=== PATIENT | female | born 1970 | race Caucasian/White ===

== ENCOUNTER 2020-07-29 18:33 | Emergency (ER) | payer OTHER, SELFPAY ==
[2020-07-29 18:33] VITALS: BP 135/69; PULSE 96; RESP 16; TEMP 36.2; O2SAT 99
[2020-07-29 18:34] VITALS: BP 135/69; PULSE 95; RESP 16; TEMP 36.2; O2SAT 100; BMI 31.3
--- NOTE | 2020-07-29 18:48 | EKG12_ITS ---
Test Reason : CP Blood Pressure : / mmHG Vent. Rate : 093 BPM Atrial Rate : 093 BPM P-R Int : 142 ms QRS Dur : 090 ms QT Int : 368 ms P-R-T Axes : 073 063 047 degrees QTc Int : 457 ms Normal sinus rhythm Biatrial enlargement Nonspecific ST abnormality Abnormal ECG Confirmed by MONA DICKSON, GUERO ([id number]), book or script editor DEMETRA ADAM ([id number]) on 08/01/2020 1:19:57 PM Referred By: JEANETTE Confirmed By:GUERO DUNN MD
[2020-07-29] MEDS: Aspirin 81 MG TAB.CHEW 324 MG PO (18:57)
--- NOTE | 2020-07-29 19:00 | RAD_ITS ---
STUDY: X-RAY CHEST REASON FOR EXAM: Female, 50 years old. chest pain x 3 days, radiates into right shoulder blade TECHNIQUE: Single AP portable view of the chest. COMPARISON: None. FINDINGS: city sanitarian leads are present. There is right basilar infiltrate and/or atelectasis. There is no demonstrated pleural abnormality. Normal size heart. Normal mediastinum and samanta. Normal visualized pulmonary arteries. Normal visualized aortic arch and descending thoracic aorta. Normal visualized thoracic spine. Normal visualized ribs, clavicles, and shoulders. There is no demonstrated abnormality of the visualized soft tissue structures of the upper abdomen. RAD/Chest 1 View (Portable) IMPRESSION: Right basilar infiltrate and/or atelectasis. Electronically Signed: Raphael Snow MD at 19:11 EDT , Service support ,
[2020-07-29 19:27] LABS: Anion Gap 7 (5-15); BUN 17 mg/dL (7-18); BUN/Creat Ratio 19.2 RATIO (10-20); Calcium,Total 9.3 mg/dL (8.5-10.1); Chloride 112 mmol/L (98-107); Creatinine, Serum 0.88 mg/dL (0.55-1.02); EST Glomerular Filtration Rate 72 mL/min (>60); Est Glom Filt Rate - Afr Amer 87 mL/min (>60); Estimated Creatinine Clearance 77.15 ml/min; Glucose 87 mg/dL (74-106); Potassium 4.7 mmol/L (3.5-5.1); Sodium Level 141 mmol/L (136-145)
[2020-07-29 19:37] LABS: Absolute Lymphocyte Count 3.95 X10^3/uL (0.83-4.51); Absolute Neutrophil Count 3.9 X10^3/uL (2.0-7.7); Basophil# 0.05 X10^3/uL; Basophil% 0.6 % (0-1); Eosinophil# 0.23 X10^3/uL; Eosinophils% 2.6 % (0-5); Hematocrit 43.8 % (37-47); Hemoglobin 14.3 g/dL (12.0-15.0); Lymphocyte # 3.95 X10^3/ul (4.0); Lymphocyte % 44.4 % (19-41); Mean Corp Hgb Conc 32.6 g/dL (32-36); Mean Corpuscular Hgb 30.8 pg (27.0-32.0); Mean Corpuscular Volume 94.2 fL (81-99); Mean Platelet Vol. 10.9 fl (6.2-12.0); Monocyte# 0.74 X10^3/uL; Monocyte% 8.3 % (0-10); NRBC Flagged by Analyzer 0 % (0-5); Neutrophil # 3.91 X10^3/uL (2.7-7.7); Neutrophil % 43.9 % (47-70); Platelet Count 252 K/mm3 (150-450); RBC Distribution Width CV 14.3 % (11.6-14.6); RBC Distribution Width SD 49.4 fl (35.1-43.9); Red Blood Count 4.65 M/mm3 (4.2-5.4); White Blood Count 8.9 K/mm3 (4.4-11.0)
--- NOTE | 2020-07-29 20:08 | ED.DCSUM_ITS ---
History of Present Illness Chief Complaint: Chest Pain Informant: Patient Onset: Days - Onset 3 days ago Context: Sudden Onset Timing: Intermittent Quality: Tightness Location: Midsternal Current Severity: Mild Maximum Severity: Moderate Worsened by: Nothing Relieved by: Nothing Associated Symptoms: Mild shortness of breath Narrative: Patient is a 50-year-old woman who presents with midsternal chest discomfort. Onset of symptoms 3 days ago. The pain lasted for hours. Nothing precipitates it. Nothing exacerbates it. Today she became concerned because it radiated to her right scapula. There is a strong family history of cardiovascular disease i.e. CA at young age and stroke at young age. Patient states she has the pain when she goes to sleep. Upon awakening the pain goes away. Pain started shortly after awakening. She denies fever, chills night sweats. She denies history of VTE. She denies leg pain, swelling discoloration. She has no symptoms of claudication. She denies hiatal hernia, peptic ulcer disease, black or maroon stool. There is no history of trauma. There is history of food intolerance. She is status post cholecystectomy. Prior to exiting the room she asked if this could be caused by stress. Stated it is possible. However in light of her risk factors will need to undertake cardiac work-up. Prior similar symptoms: No Recent Illness/Hospitalization: No - Past Medical History (1) History of hypercholesterolemia Status: Acute Past Medical History - Allergies and Home Meds Allergies/Adverse Reactions: Allergies codeine Adverse Reaction (Verified 07/29/20 18:38) Vomiting Primary Care Physician: Florencio Maloney MD [Primary Care Provider] - Prior records reviewed: No Surgical History: noncontributory Lives: Spouse/ Significant Other Smoking Status: Current every day smoker Alcohol: Rare Drugs: None Review of Systems General: Denies: Chills, Fever, Malaise - Will give another albuterol this way the lobe is now rechecked and is still feels tight and he is just having Eyes: Denies: Visual changes - bilaterally, Blurred Vision - bilaterally ENT: Denies: Rhinorrhea, Sore throat Cardiovascular: Reports: Chest pain. Denies: Palpitations, Heart racing, -, - Respiratory: Reports: Dyspnea. Denies: Cough, Sputum, Dyspnea on exertion, Orthopnea, Paroxysmal nocturnal dyspnea, -, - Gastrointestinal: Denies: Abdominal pain, Nausea, Vomiting, Diarrhea, Melena, Hematochezia Genitourinary: Denies: Dysuria, Hematuria, Frequency Musculoskeletal: Denies: Myalgias, Arthralgias, Neck pain, Back pain, Swelling, Extremity Pain, -, - Skin: Denies: Rash, Wounds Psych: Reports: Anxiety Hematologic: Denies: Easy bruising, Easy bleeding Physical Exam Vital Signs/Narrative: Vital Signs Temp Pulse Resp BP Pulse Ox 07/29/20 18:34 97.1 F L 95 16 135/69 H 100 07/29/20 18:33 97.1 F L 96 16 135/69 H 99 Inital Vital Signs reviewed: Yes - Weight General: Well nourished, Well developed, No Acute Distress Head: Normocephalic, Atraumatic Eyes: Perrl, EOMI ENT: Moist mucous membranes, No rhinorrhea Neck: Supple, Nontender Cardiovascular: Regular rate, Regular rhythm, No murmurs, Normal S1, Normal S2 Respiratory: No distress, CTA bilaterally, Chest nontender Abdomen: Soft, Nontender, Nondistended, Normal bowel sounds, No masses Back: Nontender, Normal Inspection. Negative for: CVA tenderness Extremities: Nontender, No edema, - - There is no asymmetry, swelling, discoloration, leg vein distention, palpable cords or tenderness along the distribution of the deep venous system. Skin: Normal color, No rash Neurological: Alert, Oriented x3, Cranial nerves II-XII grossly intact, Normal Strength, Normal Sensation Psychological: - - Anxious blunted affect Diagnostic/Tx/Re-eval Impressions Chest X-Ray 07/29/20 19:00 IMPRESSION: Right basilar infiltrate and/or atelectasis. Electronically Signed: Raphael Snow MD at 19:11 EDT , Service support , 07/29/20 19:00 Chest 1 View (Portable) [RAD] Stat Laboratory Results 07/29/20 07/29/20 18:40 18:40 WBC 8.9 RBC 4.65 Hgb 14.3 Hct 43.8 MCV 94.2 MCH 30.8 MCHC 32.6 RDW Std Deviation 49.4 H RDW Coeff of [place] 14.3 Plt Count 252 MPV 10.9 Immature Gran % (Auto) 0.200 Neut % (Auto) 43.9 L Lymph % (Auto) 44.4 H [place] % (Auto) 8.3 Eos % (Auto) 2.6 Baso % (Auto) 0.6 Absolute Neuts (auto) 3.9 Absolute Lymphs (auto) 3.95 Nucleated RBC % 0 Sodium 141 Potassium 4.7 Chloride 112 H Carbon Dioxide 22.0 Anion Gap 7 BUN 17 Creatinine 0.88 Estim Creat Clear Calc 77.15 Est GFR (MDRD) Af Amer 87 Est GFR (MDRD) Non-Af 72 BUN/Creatinine Ratio 19.2 Glucose 87 Calcium 9.3 Troponin I < 0.015 - Medical Decision Making Patient with midsternal chest pain which may represent cardiac etiology versus noncardiac etiology. Since patient brought up anxiety and stress this is a possibility. Will rule out cardiac etiology and other causes prior to consideration of anxiety. Patient was made aware of her lab results. She seemed relieved. She informed that she is under significant stress. The fact that this is absent upon awakening and as the day goes on gets worse suspect this is due to the stressors that she is experiencing. ED Disposition - Plan for ED Patient: Disposition: Home or Assisted Living Diagnosis: Midsternal chest pain, Stress reaction Instructions: ED Chest Pain NonCardiac, ED Stress React Referrals: Florencio Maloney MD [Primary Care Provider] - 3-5 Days Additional Instructions: It is in your best interest to stop smoking.
== END 2020-07-29 20:29 | disposition home or self-care (01) ==
PROVIDERS: Emergency Provider Emergency Medicine; PCP Family Medicine
DX: F43.9 Reaction to severe stress, unspecified (principal); E78.00 Pure hypercholesterolemia, unspecified; F17.200 Nicotine dependence, unspecified, uncomplicated; Z82.49 Family history of ischemic heart disease and other diseases of the circulatory system; Z88.5 Allergy status to narcotic agent; Z90.49 Acquired absence of other specified parts of digestive tract
CPT/HCPCS: 71045; 80048; 84484; 85025; 93005; 99285; A4216

== ENCOUNTER 2023-08-04 12:33 | Emergency (ER) | payer OTHER, SELFPAY ==
[2023-08-04 12:34] VITALS: BP 135/64; PULSE 92; RESP 18; TEMP 36.6; O2SAT 97; BMI 33.7
[2023-08-04 13:03] LABS: Absolute Neutrophil Count 5.3 X10^3/uL (2.0-7.7); Basophil# 0.04 X10^3/uL; Basophil% 0.5 % (0-1); Eosinophil# 0.14 X10^3/uL; Eosinophils% 1.6 % (0-5); Hematocrit 43.5 % (37-47); Lymphocyte % 28.1 % (19-41); Mean Corp Hgb Conc 34.5 g/dL (32-36); Mean Corpuscular Hgb 31.5 pg (27.0-32.0); Mean Corpuscular Volume 91.4 fL (81-99); Mean Platelet Vol. 10.1 fl (6.2-12.0); Monocyte# 0.69 X10^3/uL; Monocyte% 8.1 % (0-10); NRBC Flagged by Analyzer 0 % (0-5); Neutrophil # 5.25 X10^3/uL (2.7-7.7); Neutrophil % 61.5 % (47-70); Platelet Count 277 K/mm3 (150-450); RBC Distribution Width CV 14.1 % (11.6-14.6); RBC Distribution Width SD 47.4 fl (35.1-43.9); Red Blood Count 4.76 M/mm3 (4.2-5.4); White Blood Count 8.5 K/mm3 (4.4-11.0)
[2023-08-04 13:08] LABS: Internal QC Validated? YES +Cl - CLEAR BKGD; Pregnancy, Serum, hCG Quali. NEGATIVE Negative
[2023-08-04 13:17] LABS: ALB/GLOB Ratio 1.1 RATIO (0.9-2.4); AST(SGOT) 22 U/L (15-37); Alanine Aminotransfer ALT/SGPT 45 U/L (13-56); Albumin, Serum 3.8 g/dL (3.2-5.0); Alkaline Phosphatase 104 U/L (45-117); Anion Gap 4 (5-15); BUN 11 mg/dL (7-18); BUN/Creat Ratio 15.5 RATIO (10-20); Chloride 110 mmol/L (98-107); Creatinine, Serum 0.71 mg/dL (0.55-1.02); EST Glomerular Filtration Rate 91 mL/min (>60); Est Glom Filt Rate - Afr Amer 111 mL/min (>60); Estimated Creatinine Clearance 92.44 ml/min; Globulin 3.5 g/dL (2.2-4.2); Glucose 109 mg/dL (74-106); Potassium 3.7 mmol/L (3.5-5.1); Protein, Total 7.3 g/dL (6.4-8.2); Sodium Level 140 mmol/L (136-145)
[2023-08-04 13:41] LABS: Bacteria 0 SEEN /hpf (None Seen); Mucous, Urine 0 SEEN /hpf (<or=2+); Red Blood Cells-Urine 0 SEEN /hpf (0-5); Squamous Epithelial Cells - UA 0 SEEN /hpf (5-10); White Blood Cells 0 SEEN /hpf (0-5)
--- NOTE | 2023-08-04 13:41 | CT_ITS ---
STUDY: CT ABDOMEN AND PELVIS WITH CONTRAST REASON FOR EXAM: Female, 53 years old. RLQ pain RADIATION DOSAGE (If Supplied By Facility): CTDIvol = ( 17.28 ) mGy, DLP = ( 1103.50 ) mGycm TECHNIQUE: Transaxial images were obtained from the dome of the diaphragm to the symphysis pubis without oral contrast. IV 100mL Isovue-370 was administered. Sagittal and coronal images were reconstructed. Individualized dose optimization techniques were used for this CT. COMPARISON: None. FINDINGS: The visualized lung bases are unremarkable. The visualized portions of the heart are within normal limits. Normal liver. There are surgical clips in the gallbladder fossa consistent with a prior cholecystectomy. Normal spleen. Normal pancreas. Normal bilateral adrenal glands. Normal right kidney. 3 cm cyst in the midsection left kidney. Normal visualized stomach. Normal small intestine. There are multiple colonic diverticula consistent with diverticulosis. The appendix is visualized and appears normal. Normal abdominal aorta. Normal inferior vena cava. Normal retroperitoneum. Normal urinary bladder. Normal abdominal wall. Normal osseous structures. CT/Abdomen/Pelvis W IV Cont ONLY IMPRESSION: Sigmoid diverticulosis without diverticulitis. Electronically Signed: Thor Bhat MD at 15:14 EDT ,
[2023-08-04 13:42] LABS: Color, Urine Yellow (Yellow); Glucose, Dipstick Normal (Normal); Ketone-Dipstick Negative (Negative); Leukocyte Esterase-Dipstick Negative /ul (Negative); Nitrite-Dipstick Negative (Negative); Occult Blood-Urine 25 /ul (Negative); Protein-Dipstick Negative (Negative); Specific Gravity, Urine 1.005 (1.002-1.030); Urine Bilirubin Dipstick Negative (Negative); Urine Clarity Clear (Clear); Urine Urobilinogen Normal (Normal)
--- NOTE | 2023-08-04 13:42 | ED.VIS.GI ---
HPI HPI - GI History of Present Illness Chief Complaint: Abd Pain Narrative Narrative: 53-year-old female past medical history of hypercholesterolemia, obstructive sleep apnea, presents with right lower quadrant abdominal pain since , 4 days ago. She states it is worse whenever she moves, yawns, walks. She denies any fevers or chills, no nausea or vomiting, but states she had diarrhea yesterday. It was yellow and turned green. Past abdominal surgery includes cholecystectomy and hysterectomy. She states she still has her appendix. Additionally, she states she had colonoscopy remotely and was told that she has diverticulosis. She denies any hematuria or dysuria but states she has had increasing pain in her right lower quadrant over the last 4 days. PFSH PFS Medical History Diverticulitis FHx: cholecystectomy High cholesterol Migraine Sleep apnea Home Medications rosuvastatin 20 mg tablet 20 mg PO DAILY 08/04/23 [History Last Taken Unknown] sertraline 50 mg tablet 50 mg PO Q24H 08/04/23 [History Last Taken Unknown] Allergy/AdvReac Type Severity Reaction Status Date / Time codeine AdvReac Vomiting Verified 08/04/23 12:34 Surgical History H/O total hysterectomy History of cholecystectomy Social History Smoking Status: Current every day smoker tobacco type: cigarettes ROS ROS ED ROS Narrative Constitutional: No fever, no chills. HEENT: No sore throat. No neck pain. No loss of vision. No rhinorrhea. Cardiovascular: No chest pain. No palpitations. No pedal edema. Respiratory: No cough, no shortness of breath. Abdominal: Right lower quadrant abdominal pain. No nausea. No vomiting. Diarrhea yesterday. Genitourinary: No dysuria. No hematuria. Musculoskeletal: No myalgias. No arthralgias. Neurologic: No headaches. No dizziness. No lightheadedness. Skin: No rash. No change in color. Psychiatric: No depression. No anxiety. EXAM Physical Exam Narrative Exam Narrative: Afebrile. Vital signs noted. HEENT: Normocephalic. Atraumatic. PERRL, EOMI. Neck soft and supple. No point tenderness or step off. Cardiovascular: Regular rate and rhythm. No murmurs, rubs, or gallops appreciated. Respiratory: No tachypnea. Lungs clear to auscultation bilaterally. Gastrointestinal: Abdomen soft, tenderness to palpation and right lower quadrant with normoactive bowel sounds. No rebound or guarding. Neurological: Awake. Alert. Nonfocal, nonlateralizing. Skin: No rash. Normal color. No pallor. Musculoskeletal: No pedal edema. Full range of motion extremities. Const Vital Signs: 08/04/23 12:34 08/04/23 15:13 Temperature 98 F Temperature Source Temporal Pulse Rate 92 78 Respiratory Rate 18 16 Blood Pressure 135/64 H 121/63 H Blood Pressure Mean 87 82 Pulse Ox 97 99 Oxygen Delivery Method Room Air Room Air MDM MDM MDM Narrative Medical decision making narrative: Differential diagnosis is right-sided diverticulitis versus appendicitis. I have low suspicion for ovarian pathology. She may have abdomina wall muscle strain and pain as well. RN ordered protocol laboratory work was obtained and reviewed. She has a normal white count of 8.5, hemoglobin normal at 15.0, platelet count normal at 277, CMP shows normal sodium of 140, potassium normal at 3.7, chloride slightly elevated at 110 which I think is nonspecific, normal BUN of 11 and normal creatinine of 0.7, LFTs are normal with an AST of 22 and an ALT of 45, serum is negative, however she has had hysterectomy. She was bolused normal saline 1 L intravenously and administered morphine and ondansetron for analgesia. I do feel CT imaging is indicated. CT with IV contrast of the abdomen pelvis was obtained. The radiology report, and it does show a normal appendix, along with diverticuli but no evidence of diverticulitis. I do not feel antibiotics are indicated. Upon repeat examination, she states she feels the same, she was seen ambulating in the emergency department to the bathroom. I do feel that she probably has more of an abdominal wall strain. She will take [id number] analgesics. I do not feel narcotics are indicated. I feel she be discharged safely home with follow-up to her primary care provider. Return instructions to the emergency department were reviewed. Disposition is discharged home in stable condition. History & Record Review Discussion w/independent historian: Patient Additional record(s) reviewed:: Prior ED visit and Prior labs Lab Data Attestation: I reviewed the patient's lab results. Labs: Laboratory Results - last 24 hr 08/04/23 08/04/23 12:57 13:35 WBC 8.5 RBC 4.76 Hgb 15.0 Hct 43.5 MCV 91.4 MCH 31.5 MCHC 34.5 RDW Std Deviation 47.4 H RDW Coeff of [place] 14.1 Plt Count 277 MPV 10.1 Immature Gran % (Auto) 0.200 Neut % (Auto) 61.5 Lymph % (Auto) 28.1 [place] % (Auto) 8.1 Eos % (Auto) 1.6 Baso % (Auto) 0.5 Absolute Neuts (auto) 5.3 Absolute Lymphs (auto) 2.40 Nucleated RBC % 0 Sodium 140 Potassium 3.7 Chloride 110 H Carbon Dioxide 26.0 Anion Gap 4 L BUN 11 Creatinine 0.71 Estim Creat Clear Calc 92.44 Est GFR (MDRD) Af Amer 111 Est GFR (MDRD) Non-Af 91 BUN/Creatinine Ratio 15.5 Glucose 109 H Calcium 9.0 Total Bilirubin 0.30 AST 22 ALT 45 Alkaline Phosphatase 104 Total Protein 7.3 Albumin 3.8 Globulin 3.5 Albumin/Globulin Ratio 1.1 Serum , Qual NEGATIVE Urine Color Yellow Urine Clarity Clear Urine pH 7.0 Ur Specific [place] 1.005 Urine Protein Negative Urine Glucose (UA) Normal Urine Ketones Negative Urine Occult Blood 25 H Urine Nitrite Negative Urine Bilirubin Negative Urine Urobilinogen Normal Ur Leukocyte Esterase Negative Urine RBC 0 SEEN Urine WBC 0 SEEN Ur Squamous Epith Cells 0 SEEN Urine Bacteria 0 SEEN Urine Mucus 0 SEEN Radiography Diagnostic Testing: Clinical Impression(s) from Imaging Studies Abdomen/Pelvis CT 08/04/23 13:41 IMPRESSION: Sigmoid diverticulosis without diverticulitis. Electronically Signed: Thor Bhat MD at 15:14 EDT , Discharge Plan Triage Chief Complaint: Abd Pain ED Provider: Gennaro Kitchen Dx/Rx/DC Orders Clinical Impression: Abdominal pain, Abdominal wall strain Instructions: ED Abdominal Pain Unkn Cause Fem, ED Muscle Strain, Abdomen, ED Pain, Acute, Uncertain Cause Prescriptions: No Action rosuvastatin 20 mg tablet 20 mg PO DAILY sertraline 50 mg tablet 50 mg PO Q24H Primary Care Provider: Florencio Maloney Referrals: Florencio Maloney MD [Primary Care Provider] - 3-5 Days Disposition Disposition: Home, Self Care
[2023-08-04] MEDS: 0.9% Normal Saline (1000mL) 1,000 ML 999 ML IV (13:47)
[2023-08-04] MEDS: Morphine 4 MG/ML Syringe IV (13:47)
[2023-08-04] MEDS: Ondansetron 4 MG/2 ML Vial IV (13:47)
[2023-08-04 15:13] VITALS: BP 121/63; PULSE 78; RESP 16; O2SAT 99
== END 2023-08-04 15:39 | disposition home or self-care (01) ==
PROVIDERS: Emergency Provider Emergency Medicine; PCP Family Medicine; Visit Provider Emergency Medicine
DX: R10.31 Right lower quadrant pain (principal); F17.210 Nicotine dependence, cigarettes, uncomplicated; E78.00 Pure hypercholesterolemia, unspecified; Z90.49 Acquired absence of other specified parts of digestive tract; Z90.710 Acquired absence of both cervix and uterus; S39.81XA Other specified injuries of abdomen, initial encounter
CPT/HCPCS: 74177; 80053; 81001; 84703; 85025; 96361; 96374; 96375; 99282; J7030; Q9967; J2405